=== PATIENT | male | born 1960 | race Caucasian/White ===

== ENCOUNTER 2023-01-16 15:44 | Emergency (ER) | payer OTHER, SELFPAY ==
[2023-01-16 15:53] VITALS: BP 118/73; PULSE 63; RESP 20; TEMP 36.2; O2SAT 99
--- NOTE | 2023-01-16 15:55 | ED.LOWEXIN ---
HPI - Extremity Injury (Lower) General Stated Complaint: Right Hip Pain into Leg and Knee Source: patient and RN notes reviewed History of Present Illness HPI Narrative: [age] year male presents to urgent care center side. Patient states he has been having right lateral hip pain that radiates down the lateral side of his thigh to his knee, ever since September. Pt states the last 2 months, the pain has been worse. Pt notices this pain with any activity. Denies any specific injury or trauma. Denies any numbness, tingling, fevers, chills, back pain, dysuria or incontinence of urine or stool. Patient has attempted taking Tylenol extra-strength at home relief Related Data Home Medications Medication Instructions Recorded Confirmed albuterol sulfate 90 mcg/actuation See Rx Instructions .Route .COMPLEX 01/16/23 01/16/23 aerosol inhaler losartan 50 mg tablet 50 mg PO DAILY 01/16/23 01/16/23 metoprolol tartrate 50 mg tablet 50 mg PO BID 01/16/23 01/16/23 Allergies Allergy/AdvReac Type Severity Reaction Status Date / Time No Known Allergies Allergy Verified 01/16/23 16:05 Review of Systems Review of Systems: CONSTITUTIONAL: Denies fever, chills, or sweats. EYES: Denies visual changes, redness, or discharge. ENT: Denies otalgia and sore throat CARDIOVASCULAR: Denies chest pain, palpitations, or edema. RESPIRATORY: Denies cough or dyspnea. GASTROINTESTINAL: Denies abdominal pain, nausea, vomiting, or diarrhea. GENITOURINARY: Denies dysuria or hematuria. SKIN: Denies rash or itching. MUSCULOSKELETAL: Right lateral hip pain NEUROLOGIC: Denies headache, numbness, or weakness. Pertinent positives per HPI. PMFSH Comments At the time of my signature, I reviewed and agree with the nursing past medical, surgical, social, and family history. There is no relevant family history pertinent to the patient complaint. Exam Narrative: GENERAL: This is a well-nourished, well-developed patient, in no apparent distress. HEAD: normocephalic, atraumatic. EYES: Sclera clear/white. Vision is grossly intact. EARS: External ears normal, auditory canals clear and without drainage. Hearing grossly intact. NOSE: External nose normal with no obvious nasal discharge, nares without redness, no rhinorrhea. THROAT: Mucous membranes moist, posterior pharynx clear. NECK: Neck supple, non-tender without lymphadenopathy, masses or thyromegaly. CARDIOVASCULAR: Regular rate RESPIRATORY: No wheezes, rales, or rhonchi. SKIN: warm, intact with no suspicious lesions or rash, good texture and turgor. NEURO: awake, alert, and oriented to person, place and time. There were no obvious focal neurologic abnormalities. EXTREMITIES: Mild tenderness and to right lateral BACK: Nontender without deformity or crepitus. No flank tenderness. Course Course Level of Care: Express Care Visit Vital Signs Vital signs: I reviewed MDM - Extremity Injury (Lower) MDM Narrative Medical decision making narrative: Take the naproxen and steroids as directed. Make sure you take the naproxen with food. Follow up with your radiological equipment specialist next week. Differential Diagnosis Differential diagnosis: Likely other (IT band syndrome, sciatica, OA) Critical Care Time Critical Care Time Critical Care Time: No Discharge Plan Discharge Clinical Impression: Iliotibial band syndrome Qualifiers: Laterality: right Qualified Code(s): M76.31 - Iliotibial band syndrome, right leg Patient Disposition: Home, Self-Care Condition: Stable Instructions: Arthralgia (ED) Additional Instructions: Take the naproxen and steroids as directed. Make sure you take the naproxen with food. Follow up with your radiological equipment specialist next week. Prescriptions: New prednisone 20 mg tablet 40 mg PO DAILY 5 Days Qty: 10 0RF naproxen 500 mg tablet 500 mg PO BID PRN (Reason: pain) Qty: 14 0RF No Action losartan 50 mg tablet metoprolol tartrate 50 mg tablet
== END 2023-01-16 16:10 | disposition home or self-care (01) ==
PROVIDERS: Emergency Provider Nurse Practitioner Family
DX: M76.31 Iliotibial band syndrome, right leg (principal); E78.00 Pure hypercholesterolemia, unspecified; I10 Essential (primary) hypertension; Z86.16 Personal history of COVID-19
CPT/HCPCS: 99213; G0463